=== PATIENT | female | born 2000 | race Caucasian/White ===

== ENCOUNTER 2025-06-05 11:03 | Observation (INO) | payer MEDICARE, OTHER ==
[2025-06-05 12:12] LABS: Basophils # (A) 0.02 10*3/uL (0.00-0.10); Basophils % (A) 0.2 %; Eosinophils # (A) 0.15 10*3/uL (0.04-0.35); Eosinophils % (A) 1.9 %; HCT 31.9 % (37.2-46.3); HGB 10.5 g/dL (12.0-15.0); Lymphocytes # (A) 1.39 10*3/uL (0.90-5.00); Lymphocytes % (A) 17.2 %; MCH 26.6 pg (27.0-32.0); MCHC 32.9 g/dL (32.0-37.0); MCV 80.8 fL (80.0-97.0); Monocytes # (A) 0.70 10*3/uL (0.20-1.00); Monocytes % (A) 8.7 %; Neutrophils # (A) 5.77 10*3/uL (1.80-7.70); Neutrophils % (A) 71.3 %; RBC 3.95 10*6/uL (4.10-5.20); RDW 14.7 % (11.5-14.5); WBC 8.09 10*3/uL (4.50-10.00)
[2025-06-05 12:31] LABS: ALT 16 U/L (4-34); AST 29 U/L (14-36); African American GFR (CKD) >90 (>60 ml/min/1.73 sqM); Albumin 3.6 g/dL (3.5-5.0); Alkaline Phosphatase 86 U/L (38-126); Anion Gap 9 mmol/L; Blood Urea Nitrogen 17 mg/dL (7-17); Calcium 8.7 mg/dL (8.4-10.2); Carbon Dioxide 22 mmol/L (22-30); Chloride 105 mmol/L (98-107); Glucose 124 mg/dL (74-99); Non-African American GFR(CKD) >90 (>60 ml/min/1.73 sqM); Potassium 4.1 mmol/L (3.5-5.1); Sodium 136 mmol/L (137-145); Total Protein 6.7 g/dL (6.3-8.2)
[2025-06-05] MEDS: KETOROLAC 15 MG/ML 1 ML VIAL IVP STA (13:07)
--- NOTE | 2025-06-05 13:25 | ED ---
General Adult HPI - General Chief complaint: Abdominal Pain Stated complaint: Stomach pain Time Seen by Provider: 06/05/25 11:25 Source: patient, RN notes reviewed, old records reviewed Mode of arrival: ambulatory Limitations: no limitations - History of Present Illness Initial comments: This is a 25-year-old female who presents to the emergency department and mom gives all the history. Patient went to [facility]'s morning because the patient vomited twice and was expressing some abdominal pain. When they got there the patient had lab work which was relatively in normal range and CAT scan that showed mild to moderate distended stomach and possible gastric outlet. Patient came to our emergency department no vomiting with continued but patient did have intermittent significant abdominal pain according to mom. Patient has the mentality of about a 4-year-old according to report from [facility]. Patient has had no fever. - Related Data Allergies Allergy/AdvReac Type Severity Reaction Status Date / Time Penicillins Allergy Rash/Hives Verified 06/05/25 11:28 vancomycin Allergy Rash/Hives Verified 06/05/25 11:28 "all -cillins" Allergy Rash/Hives Uncoded 06/05/25 11:28 Review of Systems ROS Statement: Those systems with pertinent positive or pertinent negative responses have been documented in the HPI. ROS Other: All systems not noted in ROS Statement are negative. 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 Patient is nontoxic and well- hydrated and is in mild distress. ENT: Neck is soft and supple. No significant lymphadenopathy is noted. Oropharynx is clear. Moist mucous membranes. Neck has full range of motion without eliciting any pain. EYES: The sclera were anicteric and conjunctiva were pink and moist. Extraocular movements were intact and pupils were equal round and reactive to light. Eyelids were unremarkable. PULMONARY: Unlabored respirations. Good breath sounds bilaterally. CARDIOVASCULAR: There is a regular rate and rhythm without any murmurs gallops or rubs. ABDOMEN: Soft and nontender with normal bowel sounds. SKIN: Skin is clear with no lesions or rashes and otherwise unremarkable. NEUROLOGIC: Patient is alert and oriented normal according to mother. Cranial nerves II through XII are grossly intact. Motor and sensory are also intact. Normal speech, volume and content. Symmetrical smile. MUSCULOSKELETAL: Normal extremities with adequate strength and full range of motion. LYMPHATICS: No significant lymphadenopathy is noted PSYCHIATRIC: Unable Limitations: no limitations Course Vital Signs 06/05/25 11:21 Temperature 98.9 F Pulse Rate 94 Respiratory 18 Rate Blood Pressure 116/78 O2 Sat by Pulse 96 Oximetry Medical Decision Making - Medical Decision Making Was pt. sent in by a medical professional or institution ([facility], [facility], urgent care, hospital, or snf...) When possible be specific @ -No Did you speak to anyone other than the patient for history (EMS, parent, family, police, friend...)? What history was obtained from this source @ -No Did you review nursing and triage notes (agree or disagree)? Why? @ -I reviewed and agree with nursing and triage notes Were old charts reviewed (outside hosp., previous admission, EMS record, old EKG, old radiological studies, urgent care reports/EKG's, snf records)? Report findings @ -No old charts were reviewed Differential Diagnosis? @ -Differential Abdominal Pain Women: Appendicitis, Cholecystitis, diverticulosis, ischemic bowel, pancreatitis, hepatitis, UTI, gastroenteritis, AAA, incarcerated hernia, bowel obstruction, constipation, inflammatory bowel, hepatitis, peptic ulcer disease, splenic infarction, perforated viscus, vulvitis, ovarian torsion, PID, kidney stone, placenta abruption, this is not meant to be an all-inclusive list EKG interpreted by me (3pts min.). @ -As above X-rays interpreted by me (1pt min.). @ -None done CT interpreted by me (1pt min.). @ -None done U/S interpreted by me (1pt. min.). @ -None done What testing was considered but not performed or refused? (CT, X-rays, U/S, labs)? Why? @ -None What meds were considered but not given or refused? Why? @ -None Did you discuss the management of the patient with other professionals (professionals i.e. [facility], [facility] [facility], lab, RT, psych nurse, healthcare social worker, university relations vice president, teacher, custody officer, case managers)? Give summary @ -I spoke with [facility] hospitalist agreed to admit the patient admitted the patient wrote a bitting orders Was smoking cessation discussed for >3mins.? @ -No Was critical care preformed (if so, how long)? @ -No Were there social determinants of health that impacted care today? How? (Homelessness, low income, unemployed, alcoholism, drug addiction, transportation, low edu. Level, literacy, decrease access to med. care, fdc, rehab)? @ -No Was there de-escalation of care discussed even if they declined (Discuss DNR or withdrawal of care, Hospice)? DNR status @ -No What co-morbidities impacted this encounter? (DM, HTN, Smoking, COPD, CAD, Cancer, CVA, ARF, Chemo, Hep., AIDS, mental health diagnosis, sleep apnea, morbid obesity)? @ -None Was patient admitted / discharged? Hospital course, mention meds given and route, prescriptions, significant lab abnormalities, going to OR and other pertinent info. @ -Patient had no vomiting while in the emergency department but according to mom the patient continued to complain of abdominal pain. Patient will be admitted to [facility]. Undiagnosed new problem with uncertain prognosis? @ -No Drug Therapy requiring intensive monitoring for toxicity (Heparin, Nitro, Insulin, Cardizem)? @ -No Were any procedures done? @ -No Diagnosis/symptom? @ -Acute vomiting with abdominal pain Acute, or Chronic, or Acute on Chronic? @ -Acute Uncomplicated (without systemic symptoms) or Complicated (systemic symptoms)? @ -Complicated Side effects of treatment? @ -No Exacerbation, Progression, or Severe Exacerbation? @ -No Poses a threat to life or bodily function? How? (Chest pain, USA, NH, pneumonia, PE, COPD, DKA, ARF, appy, cholecystitis, CVA, Diverticulitis, Homicidal, Suicidal, threat to staff... and all critical care pts) @ -No - Lab Data Result diagrams: 06/05/25 12:00 06/05/25 12:00 Lab Results 06/05/25 06/05/25 Range/Units 12:00 12:00 WBC 8.09 (4.50-10.00) 10*3/uL RBC 3.95 L (4.10-5.20) 10*6/uL Hgb 10.5 L (12.0-15.0) g/dL Hct 31.9 L (37.2-46.3) % MCV 80.8 (80.0-97.0) fL MCH 26.6 L (27.0-32.0) pg MCHC 32.9 (32.0-37.0) g/dL MPV 10.4 (9.5-12.2) fL Immature Gran % (Auto) 0.7 % Immature Gran # 0.06 H (0.00-0.04) 10*3/uL Sodium 136 L (137-145) mmol/L Potassium 4.1 (3.5-5.1) mmol/L Chloride 105 (98-107) mmol/L Carbon Dioxide 22 (22-30) mmol/L Anion Gap 9 mmol/L BUN 17 (7-17) mg/dL Creatinine 0.44 L (0.52-1.04) mg/dL Est GFR (CKD-EPI)AfAm >90 (>60 ml/min/1.73 sqM) Est GFR (CKD-EPI)NonAf >90 (>60 ml/min/1.73 sqM) Glucose 124 H (74-99) mg/dL Calcium 8.7 (8.4-10.2) mg/dL Total Bilirubin 0.8 (0.2-1.3) mg/dL AST 29 (14-36) U/L ALT 16 (4-34) U/L Alkaline Phosphatase 86 (38-126) U/L Total Protein 6.7 (6.3-8.2) g/dL Albumin 3.6 (3.5-5.0) g/dL Disposition Clinical Impression: Acute vomiting, Abdominal pain Disposition: ADMITTED IP TO THIS [facility] Referrals: Tayo Hernández MD [Primary Care Provider] - 1-2 days Time of Disposition: 13:25
[2025-06-05] MEDS: ONDANSETRON 4 MG/2 ML VIAL IVP PRN (14:08)
[2025-06-05] MEDS: SODIUM CHLORIDE 0.9% 1,000 ML IV SCH (14:09)
[2025-06-05 14:17] LABS: Anisocytosis (M) Present; Ovalocytes Present
[2025-06-05] MEDS: PANTOPRAZOLE 40 MG/10 ML VIAL IVP STA (14:33)
[2025-06-05 15:16] LABS: Basophils # (A) 0.02 10*3/uL (0.00-0.10); Basophils % (A) 0.2 %; Eosinophils # (A) 0.15 10*3/uL (0.04-0.35); Eosinophils % (A) 1.7 %; HCT 31.1 % (37.2-46.3); HGB 9.9 g/dL (12.0-15.0); Lymphocytes # (A) 1.35 10*3/uL (0.90-5.00); Lymphocytes % (A) 15.2 %; MCH 26.1 pg (27.0-32.0); MCHC 31.8 g/dL (32.0-37.0); MCV 82.1 fL (80.0-97.0); Monocytes # (A) 0.90 10*3/uL (0.20-1.00); Monocytes % (A) 10.1 %; Neutrophils # (A) 6.40 10*3/uL (1.80-7.70); Neutrophils % (A) 71.8 %; Platelet Count 280 10*3/uL (140-440); RBC 3.79 10*6/uL (4.10-5.20); RDW 14.8 % (11.5-14.5); WBC 8.91 10*3/uL (4.50-10.00)
[2025-06-05] MEDS ORDERED: OLANZapine 2.5 MG TAB PO PRN (18:49)
--- NOTE | 2025-06-05 19:00 | P.HPIM ---
History of Present Illness Patient is a pleasant 25 years old female with past medical history of cerebral palsy was transferred from outside facility at the [facility] for possible GI bleed. Patient usually likes to go to ice cream shop but her mother noticed she did not ask for anything this time. Then patient had good bowel movement yesterday this is followed by vomiting once yesterday and then 1 this morning, this morning was coffee-ground vomitus. While she was in our facility she had another episode of coffee-ground vomitus When I asked the patient here for any pain she referred to her right side of the abdomen more to the upper part but on examination it was mildly nonspecific tenderness and could be more on the left lower quadrant as well however patient not very cooperative. Patient denies chest pain or dyspnea. Blood pressure stable no fever. Hemoglobin 10.5 and 9.9 BMP and LFT were unremarkable CT report from transfer patient papers showing mild to moderate fluid distention of the stomach without significant wall thickening could be secondary to gastroparesis versus gastric outlet obstruction UA showing concentrated sample. WBC 9.1. Platelet count 310. Occult blood was positive in the stomach sample. Review of Systems Review of systems CONSTITUTIONAL: No fever, no malaise, no fatigue. HEENT: No recent visual problems or hearing problems. Denied any sore throat. CARDIOVASCULAR: No orthopnea, PND, no palpitations, no syncope. PULMONARY: No shortness of breath, no cough, no hemoptysis. GASTROINTESTINAL: No diarrhea, no nausea, no vomiting, no abdominal pain. Normo active bowel sounds. NEUROLOGICAL: No headaches, no weakness, no numbness. HEMATOLOGICAL: Denies any bleeding or petechiae. GENITOURINARY: Denies any burning micturition, frequency, or urgency. MUSCULOSKELETAL/RHEUMATOLOGICAL: Denies any joint pain, swelling, or any muscle pain. ENDOCRINE: Denies any polyuria or polydipsia. 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." Additional Past Surgical History / Comment(s): tethered cord, dental surgeries, Smoking Status: Never smoker Past Alcohol Use History: None Reported Past Drug Use History: None Reported Medications and Allergies Home Medications Medication Instructions Recorded Confirmed Type Ergocalciferol (Vitamin D2) 1,250 mcg PO ALMONTE 06/05/25 06/05/25 History [Drisdol (GEQ) 1,250 MCG (50,000 IU)] FLUoxetine HCL [PROzac] 20 mg PO DAILY 06/05/25 06/05/25 History Famotidine [Pepcid] 20 mg PO BID 06/05/25 06/05/25 History Ferrous Sulfate [Feosol] 325 mg PO DAILY 06/05/25 06/05/25 History OLANZapine [ZyPREXA] 2.5 mg PO DIRECTED 06/05/25 06/05/25 History Ivins-3/Dha/Epa/Fish Oil [Fish Oil 1 cap PO DAILY 06/05/25 06/05/25 History 1,000 mg Softgel] Prebiotic/Probiotic 1 cap PO DAILY 06/05/25 06/05/25 History Allergies Allergy/AdvReac Type Severity Reaction Status Date / Time Penicillins Allergy Rash/Hives Verified 06/05/25 13:55 vancomycin Allergy Rash/Hives Verified 06/05/25 13:55 "all -cillins" Allergy Rash/Hives Uncoded 06/05/25 11:28 Physical Exam Vitals: Vital Signs Temp Pulse Resp BP Pulse Ox 06/05/25 18:16 101 H 18 120/93 96 06/05/25 15:15 98.4 F 110 H 14 125/77 97 06/05/25 11:21 98.9 F 94 18 116/78 96 Intake and Output 06/05/25 06/05/25 06/05/25 06:59 14:59 22:59 Other: Weight 83.915 kg -GENERAL: The patient is awake, mildly agitated, mildly confused. Not in distress HEENT: Pupils are round and equally reacting to light. EOMI. No scleral icterus. No conjunctival pallor. Normocephalic, atraumatic. No pharyngeal erythema. No thyromegaly. CARDIOVASCULAR: S1 and S2 present. No murmurs, rubs, or gallops. PULMONARY: Chest is clear to auscultation, no wheezing , no crackles. -ABDOMEN: Soft, nonspecific tenderness more in the left lower quadrant, nondistended, normoactive bowel sounds. No palpable organomegaly. MUSCULOSKELETAL: No joint swelling or deformity. EXTREMITIES: No cyanosis, clubbing, or pedal edema. NEUROLOGICAL: Gross neurological examination did not reveal any focal deficits. SKIN: No rashes. no petechiae. Results CBC & Chem 7: 06/05/25 15:08 06/05/25 12:00 Labs: Abnormal Lab Results - Last 24 Hours (Table) 06/05/25 06/05/25 06/05/25 Range/Units 12:00 12:00 15:08 RBC 3.95 L 3.79 L (4.10-5.20) 10*6/uL Hgb 10.5 L 9.9 L (12.0-15.0) g/dL Hct 31.9 L 31.1 L (37.2-46.3) % MCH 26.6 L 26.1 L (27.0-32.0) pg MCHC 31.8 L (32.0-37.0) g/dL RDW 14.8 H (11.5-14.5) % MPV 9.4 L (9.5-12.2) fL Immature Gran # 0.06 H 0.09 H (0.00-0.04) 10*3/uL Sodium 136 L (137-145) mmol/L Creatinine 0.44 L (0.52-1.04) mg/dL Glucose 124 H (74-99) mg/dL Assessment and Plan Assessment: Acute GI bleed is suspected with coffee-ground vomitus and abdominal pain, Possible gastroparesis versus gastric outlet obstruction in the CAT scan from transfer to facility Acute blood loss anemia Cerebral palsy History of kidney stone Plan: Avoid any blood thinners Continue the Protonix Continue with normal saline Monitor blood pressure and vitals Monitor hemoglobin Surgery team consult as there is no GI service in this facility during this week. Labs and medication were reviewed.. Continue same treatment. Continue with symptomatic treatment. Resume home medication. Monitor labs and vitals. DVT and GI prophylaxis. Further recommendations as per clinical course of the p atient DVT prophylaxis: Avoid anticoagulation, continue mechanical GI Prophylaxis: Protonix Prognosis is guarded
[2025-06-05 19:15] LABS: Basophils # (A) 0.01 10*3/uL (0.00-0.10); Basophils % (A) 0.1 %; Eosinophils # (A) 0.06 10*3/uL (0.04-0.35); Eosinophils % (A) 0.7 %; HCT 28.4 % (37.2-46.3); HGB 9.2 g/dL (12.0-15.0); Lymphocytes # (A) 1.50 10*3/uL (0.90-5.00); Lymphocytes % (A) 18.0 %; MCH 26.1 pg (27.0-32.0); MCHC 32.4 g/dL (32.0-37.0); MCV 80.7 fL (80.0-97.0); Monocytes # (A) 0.61 10*3/uL (0.20-1.00); Monocytes % (A) 7.3 %; Neutrophils # (A) 6.06 10*3/uL (1.80-7.70); Neutrophils % (A) 72.9 %; Platelet Count 261 10*3/uL (140-440); RBC 3.52 10*6/uL (4.10-5.20); RDW 15.0 % (11.5-14.5); WBC 8.32 10*3/uL (4.50-10.00)
[2025-06-05] MEDS: PANTOPRAZOLE 40 MG/10 ML VIAL IVP SCH (20:16)
[2025-06-06 06:00] LABS: Basophils # (A) 0.01 10*3/uL (0.00-0.10); Basophils % (A) 0.1 %; Eosinophils # (A) 0.19 10*3/uL (0.04-0.35); Eosinophils % (A) 2.8 %; HCT 26.5 % (37.2-46.3); HGB 8.4 g/dL (12.0-15.0); Lymphocytes # (A) 2.42 10*3/uL (0.90-5.00); Lymphocytes % (A) 36.0 %; MCH 25.8 pg (27.0-32.0); MCHC 31.7 g/dL (32.0-37.0); MCV 81.5 fL (80.0-97.0); Monocytes # (A) 0.74 10*3/uL (0.20-1.00); Monocytes % (A) 11.0 %; Neutrophils # (A) 3.31 10*3/uL (1.80-7.70); Neutrophils % (A) 49.2 %; Platelet Count 248 10*3/uL (140-440); RBC 3.25 10*6/uL (4.10-5.20); RDW 15.0 % (11.5-14.5); WBC 6.73 10*3/uL (4.50-10.00)
[2025-06-06 06:01] LABS: Glucose,Whole Blood 114 mg/dL (70-110)
[2025-06-06 06:16] LABS: INR 1.0 (<1.2); Partial Thromboplastin Time 24.4 sec (22.0-30.0); Prothrombin Time 11.1 sec (10.0-12.5)
[2025-06-06 06:34] LABS: African American GFR (CKD) >90 (>60 ml/min/1.73 sqM); Anion Gap 4 mmol/L; Blood Urea Nitrogen 15 mg/dL (7-17); Calcium 8.5 mg/dL (8.4-10.2); Carbon Dioxide 23 mmol/L (22-30); Chloride 110 mmol/L (98-107); Glucose 107 mg/dL (74-99); Magnesium 1.8 mg/dL (1.6-2.3); Non-African American GFR(CKD) >90 (>60 ml/min/1.73 sqM); Sodium 137 mmol/L (137-145)
[2025-06-06 06:46] LABS: Potassium 4.0 mmol/L (3.5-5.1)
[2025-06-06] MEDS ORDERED: PANTOPRAZOLE 40 MG/10 ML VIAL IVP SCH (09:00)
[2025-06-06] MEDS: FERROUS SULFATE 325 MG TAB PO SCH (09:16)
[2025-06-06 11:31] LABS: Glucose,Whole Blood 96 mg/dL (70-110)
--- NOTE | 2025-06-06 12:25 | P.GSCN ---
History of Present Illness Consult date: 06/06/25 Reason for Consult: Upper GI bleed History of present illness: 25-year-old female with developmental delay. Patient went to the ER in [facility] after her family noticed she was complaining of nausea and some vague discomfort. Abdominal pain was thought to be more on the left side of the abdomen. Patient had an episode of emesis at home which was coffee-ground and then 2 episodes while she was here. There may have been some blood within the emesis. CAT scan showed distended stomach. Images not available in our system at this time. This morning she feels well. Wants to go home. She is hungry for her regular food. Hemoglobin was 9.9 on arrival. Down to 8.4 today. Last bowel movement on normal in color. No history of upper GI bleed in the past. No diabetes. No abdominal surgeries. 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," Deaf in L ear, Renal stones, Tethered cord syndrome History of Any Multi-Drug Resistant Organisms: None Reported Past Surgical History: Back Surgery Additional Past Surgical History / Comment(s): Dental surgeries, Tethered cord syndrome back sx Past Anesthesia/Blood Transfusion Reactions: No Reported Reaction Additional Psychological History / Comment(s): Pt's caregiver states some mild behavioral issues r/t developmental delay.; States pt is "cognitively like a small child." Smoking Status: Never smoker Past Alcohol Use History: None Reported Past Drug Use History: None Reported Medications and Allergies Home Medications Medication Instructions Recorded Confirmed Type Ergocalciferol (Vitamin D2) 1,250 mcg PO ALMONTE 06/05/25 06/05/25 History [Drisdol (GEQ) 1,250 MCG (50,000 IU)] FLUoxetine HCL [PROzac] 20 mg PO DAILY 06/05/25 06/05/25 History Famotidine [Pepcid] 20 mg PO BID 06/05/25 06/05/25 History Ferrous Sulfate [Feosol] 325 mg PO DAILY 06/05/25 06/05/25 History OLANZapine [ZyPREXA] 2.5 mg PO DIRECTED 06/05/25 06/05/25 History Victor-3/Dha/Epa/Fish Oil [Fish Oil 1 cap PO DAILY 06/05/25 06/05/25 History 1,000 mg Softgel] Prebiotic/Probiotic 1 cap PO DAILY 06/05/25 06/05/25 History Allergies Allergy/AdvReac Type Severity Reaction Status Date / Time Penicillins Allergy Rash/Hives Verified 06/05/25 13:55 vancomycin Allergy Rash/Hives Verified 06/05/25 13:55 "all -cillins" Allergy Rash/Hives Uncoded 06/05/25 11:28 Surgical - Exam Vital Signs Temp Pulse Resp BP Pulse Ox 98.9 F 94 18 116/78 96 06/05/25 11:21 06/05/25 11:21 06/05/25 11:21 06/05/25 11:21 06/05/25 11:21 Physical exam: General: Well-developed, well-nourished HEENT: Normocephalic, sclerae nonicteric Abdomen: Nontender, nondistended Extremities: No edema Neuro: Alert Results - Labs 06/06/25 05:29 06/06/25 05:29 Abnormal Lab Results - Last 24 Hours (Table) 06/05/25 06/05/25 06/05/25 Range/Units 12:00 12:00 15:08 RBC 3.95 L 3.79 L (4.10-5.20) 10*6/uL Hgb 10.5 L 9.9 L (12.0-15.0) g/dL Hct 31.9 L 31.1 L (37.2-46.3) % MCH 26.6 L 26.1 L (27.0-32.0) pg MCHC 31.8 L (32.0-37.0) g/dL RDW 14.8 H (11.5-14.5) % MPV 9.4 L (9.5-12.2) fL Immature Gran # 0.06 H 0.09 H (0.00-0.04) 10*3/uL Sodium 136 L (137-145) mmol/L Chloride (98-107) mmol/L Creatinine 0.44 L (0.52-1.04) mg/dL Glucose 124 H (74-99) mg/dL POC Glucose (mg/dL) (70-110) mg/dL 06/05/25 06/06/25 06/06/25 Range/Units 18:54 05:29 05:29 RBC 3.52 L 3.25 L (4.10-5.20) 10*6/uL Hgb 9.2 L 8.4 L (12.0-15.0) g/dL Hct 28.4 L 26.5 L (37.2-46.3) % MCH 26.1 L 25.8 L (27.0-32.0) pg MCHC 31.7 L (32.0-37.0) g/dL RDW 15.0 H (11.5-14.5) % MPV 9.3 L 9.4 L (9.5-12.2) fL Immature Gran # 0.08 H 0.06 H (0.00-0.04) 10*3/uL Sodium (137-145) mmol/L Chloride 110 H (98-107) mmol/L Creatinine (0.52-1.04) mg/dL Glucose 107 H (74-99) mg/dL POC Glucose (mg/dL) (70-110) mg/dL 06/06/25 Range/Units 05:59 RBC (4.10-5.20) 10*6/uL Hgb (12.0-15.0) g/dL Hct (37.2-46.3) % MCH (27.0-32.0) pg MCHC (32.0-37.0) g/dL RDW (11.5-14.5) % MPV (9.5-12.2) fL Immature Gran # (0.00-0.04) 10*3/uL Sodium (137-145) mmol/L Chloride (98-107) mmol/L Creatinine (0.52-1.04) mg/dL Glucose (74-99) mg/dL POC Glucose (mg/dL) 114 H (70-110) mg/dL Diabetes panel 06/05/25 06/06/25 Range/Units 12:00 05:29 Sodium 136 L 137 (137-145) mmol/L Potassium 4.1 4.0 (3.5-5.1) mmol/L Chloride 105 110 H (98-107) mmol/L Carbon Dioxide 22 23 (22-30) mmol/L BUN 17 15 (7-17) mg/dL Creatinine 0.44 L 0.52 (0.52-1.04) mg/dL Glucose 124 H 107 H (74-99) mg/dL Calcium 8.7 8.5 (8.4-10.2) mg/dL AST 29 (14-36) U/L ALT 16 (4-34) U/L Alkaline Phosphatase 86 (38-126) U/L Total Protein 6.7 (6.3-8.2) g/dL Albumin 3.6 (3.5-5.0) g/dL Calcium panel 06/05/25 06/06/25 Range/Units 12:00 05:29 Calcium 8.7 8.5 (8.4-10.2) mg/dL Albumin 3.6 (3.5-5.0) g/dL Pituitary panel 06/05/25 06/06/25 Range/Units 12:00 05:29 Sodium 136 L 137 (137-145) mmol/L Potassium 4.1 4.0 (3.5-5.1) mmol/L Chloride 105 110 H (98-107) mmol/L Carbon Dioxide 22 23 (22-30) mmol/L BUN 17 15 (7-17) mg/dL Creatinine 0.44 L 0.52 (0.52-1.04) mg/dL Glucose 124 H 107 H (74-99) mg/dL Calcium 8.7 8.5 (8.4-10.2) mg/dL Adrenal panel 06/05/25 06/06/25 Range/Units 12:00 05:29 Sodium 136 L 137 (137-145) mmol/L Potassium 4.1 4.0 (3.5-5.1) mmol/L Chloride 105 110 H (98-107) mmol/L Carbon Dioxide 22 23 (22-30) mmol/L BUN 17 15 (7-17) mg/dL Creatinine 0.44 L 0.52 (0.52-1.04) mg/dL Glucose 124 H 107 H (74-99) mg/dL Calcium 8.7 8.5 (8.4-10.2) mg/dL Total Bilirubin 0.8 (0.2-1.3) mg/dL AST 29 (14-36) U/L ALT 16 (4-34) U/L Alkaline Phosphatase 86 (38-126) U/L Total Protein 6.7 (6.3-8.2) g/dL Albumin 3.6 (3.5-5.0) g/dL Assessment and Plan (1) GI bleed Narrative/Plan: 25-year-old female with recent upper GI bleed. Will check abdominal x-ray to evaluate for gastric distention. Will schedule for upper endoscopy tomorrow. May begin clear liquids. Current Visit: Yes Status: Acute Code(s): K92.2 - GASTROINTESTINAL HEMORRHAGE, UNSPECIFIED SNOMED Code(s): 38206804
--- NOTE | 2025-06-06 14:37 | XR ---
EXAMINATION TYPE: XR abdomen 2V DATE OF EXAM: 06/06/2025 COMPARISON: NONE HISTORY: Abdominal pain TECHNIQUE: Supine and upright views of the abdomen were obtained. FINDINGS: Small bowel demonstrates no evidence for dilatation or air fluid levels. Gas and fecal material is seen in non-distended colon. No convincing evidence for pneumoperitoneum. No unusual calcifications. The lung bases are clear. Cardiomegaly. The osseous structures are intact. IMPRESSION: Overall nonobstructive bowel gas pattern. [facility], , 06/06/2025 2:34 PM
--- NOTE | 2025-06-06 15:31 | P.PN ---
Subjective Patient is a pleasant 25 years old female with past medical history of cerebral palsy was transferred from outside facility at the [facility] for possible GI bleed. Patient usually likes to go to ice cream shop but her mother noticed she did not ask for anything this time. Then patient had good bowel movement yesterday this is followed by vomiting once yesterday and then 1 this morning, this morning was coffee-ground vomitus. While she was in our facility she had another episode of coffee-ground vomitus When I asked the patient here for any pain she referred to her right side of the abdomen more to the upper part but on examination it was mildly nonspecific tenderness and could be more on the left lower quadrant as well however patient not very cooperative. Patient denies chest pain or dyspnea. Blood pressure stable no fever. Hemoglobin 10.5 and 9.9 BMP and LFT were unremarkable CT report from transfer patient papers showing mild to moderate fluid distention of the stomach without significant wall thickening could be secondary to gastroparesis versus gastric outlet obstruction UA showing concentrated sample. WBC 9.1. Platelet count 310. Occult blood was positive in the stomach sample. 06/06 No more vomiting, no more coffee-ground vomitus Abdominal pain feels better No issues with bowel per patient She feels comfortable denies any other complaint Patient is eager to eat this morning Father at bedside and all questions answered to distraction We checked her hemoglobin yesterday was stable at 9.9. Today is slightly lower at 8.4. Remains on simple hydration and IV Protonix Abdominal x-ray showed nonobstructive bowel gas pattern. Reviewed by myself and agreeable. Surgery team evaluated patient with plan for EGD tomorrow \Review of systems CONSTITUTIONAL: No fever, no malaise, no fatigue. HEMATOLOGICAL: Denies any bleeding or petechiae. GENITOURINARY: Denies any burning micturition, frequency, or urgency. MUSCULOSKELETAL/RHEUMATOLOGICAL: Denies any joint pain, swelling, or any muscle pain. ENDOCRINE: Denies any polyuria or polydipsia. Active Medications Generic Name Dose Route Start Last Admin Trade Name Freq PRN Reason Stop Dose Admin Ferrous Sulfate 325 mg 06/06/25 09:00 06/06/25 09:16 Ferrous Sulfate 325 Mg Tab PO 325 mg DAILY SHOSHANA Administration Fluoxetine HCl 20 mg 06/06/25 09:00 06/06/25 09:16 Fluoxetine Hcl 20 Mg Cap PO 20 mg DAILY SHOSHANA Administration Sodium Chloride 1,000 mls @ 100 mls/hr 06/05/25 13:30 06/06/25 09:22 Saline 0.9% IV 100 mls/hr .Q10H SHOSHANA Administration Olanzapine 2.5 mg 06/05/25 18:49 Olanzapine 2.5 Mg Tab PO BID PRN Agitation or Acute Anxiety Ondansetron HCl 4 mg 06/05/25 13:26 06/05/25 14:09 Ondansetron 4 Mg/2 Ml Vial IVP 4 mg Q6HR PRN Administration Nausea And Vomiting Pantoprazole Sodium 40 mg 06/05/25 21:00 06/06/25 09:16 Pantoprazole 40 Mg/10 Ml Vial IVP 40 mg BID SHOSHANA Administration Objective - Vital Signs Vital signs: Vital Signs Temp 97.6 F 06/06/25 09:12 Pulse 85 06/06/25 11:54 Resp 18 06/06/25 11:54 BP 118/83 06/06/25 11:54 Pulse Ox 95 06/06/25 11:54 FiO2 Intake & Output 06/05/25 06/06/25 06/06/25 18:59 06:59 18:59 Output Total 0 Balance 0 Weight 83.915 kg 91.5 kg Output: Emesis 0 Other: Voiding Method Toilet # Voids 1 - Exam -GENERAL: The patient is alert and oriented x3, not in any acute distress. Well developed, well nourished. Mentally challenged HEENT: Pupils are round and equally reacting to light. EOMI. No scleral icterus. No conjunctival pallor. Normocephalic, atraumatic. No pharyngeal erythema. No t hyromegaly. CARDIOVASCULAR: S1 and S2 present. No murmurs, rubs, or gallops. PULMONARY: Chest is clear to auscultation, no wheezing , no crackles. ABDOMEN: Soft, nontender, nondistended, normoactive bowel sounds. No palpable organomegaly. MUSCULOSKELETAL: No joint swelling or deformity. EXTREMITIES: No cyanosis, clubbing, or pedal edema. NEUROLOGICAL: Gross neurological examination did not reveal any focal deficits. SKIN: No rashes. no petechiae. - Labs CBC & Chem 7: 06/06/25 05:29 06/06/25 05:29 Labs: Abnormal Lab Results - Last 24 Hours (Table) 06/05/25 06/06/25 06/06/25 Range/Units 18:54 05:29 05:29 RBC 3.52 L 3.25 L (4.10-5.20) 10*6/uL Hgb 9.2 L 8.4 L (12.0-15.0) g/dL Hct 28.4 L 26.5 L (37.2-46.3) % MCH 26.1 L 25.8 L (27.0-32.0) pg MCHC 31.7 L (32.0-37.0) g/dL RDW 15.0 H (11.5-14.5) % MPV 9.3 L 9.4 L (9.5-12.2) fL Immature Gran # 0.08 H 0.06 H (0.00-0.04) 10*3/uL Chloride 110 H (98-107) mmol/L Glucose 107 H (74-99) mg/dL POC Glucose (mg/dL) (70-110) mg/dL 06/06/25 Range/Units 05:59 RBC (4.10-5.20) 10*6/uL Hgb (12.0-15.0) g/dL Hct (37.2-46.3) % MCH (27.0-32.0) pg MCHC (32.0-37.0) g/dL RDW (11.5-14.5) % MPV (9.5-12.2) fL Immature Gran # (0.00-0.04) 10*3/uL Chloride (98-107) mmol/L Glucose (74-99) mg/dL POC Glucose (mg/dL) 114 H (70-110) mg/dL Assessment and Plan Assessment: Acute GI bleed is suspected with coffee-ground vomitus and abdominal pain, Possible gastroparesis versus gastric outlet obstruction in the CAT scan from transfer to facility Acute blood loss anemia Cerebral palsy History of kidney stone Plan: EGD in the morning, 06/07 Avoid any blood thinners Continue the Protonix Continue with normal saline Monitor blood pressure and vitals Monitor hemoglobin Surgery team consult as there is no GI service in this facility during this week. Labs and medication were reviewed.. Continue same treatment. Continue with symptomatic treatment. Resume home medication. Monitor labs and vitals. DVT and GI prophylaxis. Further recommendations as per clinical course of the patient DVT prophylaxis: Avoid anticoagulation, continue mechanical GI Prophylaxis: Protonix Prognosis is guarded
[2025-06-07 07:36] LABS: Basophils # (A) 0.02 10*3/uL (0.00-0.10); Basophils % (A) 0.3 %; Eosinophils # (A) 0.25 10*3/uL (0.04-0.35); Eosinophils % (A) 3.5 %; HCT 25.1 % (37.2-46.3); HGB 8.2 g/dL (12.0-15.0); Lymphocytes # (A) 2.93 10*3/uL (0.90-5.00); Lymphocytes % (A) 41.3 %; MCH 26.7 pg (27.0-32.0); MCHC 32.7 g/dL (32.0-37.0); MCV 81.8 fL (80.0-97.0); Monocytes # (A) 0.92 10*3/uL (0.20-1.00); Monocytes % (A) 13.0 %; Neutrophils # (A) 2.94 10*3/uL (1.80-7.70); Neutrophils % (A) 41.3 %; Platelet Count 247 10*3/uL (140-440); RBC 3.07 10*6/uL (4.10-5.20); RDW 15.0 % (11.5-14.5); WBC 7.10 10*3/uL (4.50-10.00)
[2025-06-07 07:56] VITALS: TEMP 97.3
[2025-06-07] MEDS ORDERED: PROPOFOL 10 MG/ML 20 ML VIAL IV ONE (08:19)
[2025-06-07] MEDS: IV FLUID CONTINUATION 1,000 ML IV ONE (08:31)
--- NOTE | 2025-06-07 08:47 | P.PCN ---
Date of Procedure: 06/07/25 Procedure(s) Performed: Preoperative Dx: Upper GI bleed Postoperative Dx: Mild gastritis, mild distal esophagitis, moderate-sized hiatal hernia Procedure: EGD with Bx Anesthesia: Sedation Endoscopist: Dr. Canales Specimens: Antrum Endoscopic Procedure: The patient was on the endoscopy table in the left decu bitus position. The Olympus gastroscope was inserted into the oropharynx and passed under direct visualization to the region of the third portion of the duodenum. From that point the scope was slowly withdrawn inspecting all surfaces carefully. There were no neoplastic inflammatory or polypoid lesions throughout the duodenum. The pylorus was widely patent. The stomach was carefully inspected. There was a small amount of lightly bile-stained saliva evacuated. Less than 25 cc. There was minimal gastritis present and a biopsy of the antrum took place. Retroflexion revealed a hiatal hernia. The scope was withdrawn and the supradiaphragmatic region. The patient's GE junction was present at 37 cm while the diaphragmatic hiatus was at 40 cm. The portion of stomach above the diaphragm appeared normal. At the GE junction there were 2 small areas of esophagitis. 1 was friable and there was a small amount of blood there. This was not present on insertion. The remainder the esophagus appeared normal. No biopsies of the esophagus took place. The patient was then taken to the recovery room in stable condition per anesthesia guidelines. Recommendations: Etiology of her vomiting unclear but bleeding likely related to the distal esophagitis secondary to hiatal hernia. Patient prior to her coffee- ground emesis and subsequent bloody emesis had a bilious episode of vomiting and this is likely irritated further the esophagitis causing the bleeding to occur. Patient is on Pepcid twice daily currently. Discussed with family to switch to omeprazole once daily. For 1 to 2 weeks patient's mother will do omeprazole in the morning and Pepcid at night. Discussed the importance of not eating or drinking close to bedtime and keeping the head of the bed propped up because the patient does have symptoms of coughing when laying flat consistent with nighttime reflux. Will resume diet. May discharge if tolerates.
[2025-06-07 13:02] VITALS: BP 122/86; PULSE 85; RESP 18
== END 2025-06-07 15:57 | disposition home or self-care (01) ==
LOC: EC 11:03 → EEVIPCON 13:26 → 5NMEDONC 13:26 → 3SCARD 15:09
PROVIDERS: ADMIT Internal Medicine; ATTEND Internal Medicine
DX: K20.91 Esophagitis, unspecified with bleeding (principal); K44.9 Diaphragmatic hernia without obstruction or gangrene; D62 Acute posthemorrhagic anemia; K29.50 Unspecified chronic gastritis without bleeding; Z88.0 Allergy status to penicillin; Z88.1 Allergy status to other antibiotic agents; G80.9 Cerebral palsy, unspecified; Z79.899 Other long term (current) drug therapy; Z87.442 Personal history of urinary calculi
CPT/HCPCS: 96376 ×2; 96374; 96375; 99284; 36415; 88305; 80053; 80048; 83735; 85025 ×3; 85610; 85730; 82271; 81025; 84703; 74019; 43239; G0378 ×4; J2405; J1885; J2704; J2470 ×3